=== PATIENT | female | born 1960 | race African-American/Black ===

== ENCOUNTER 2021-01-09 11:10 | Inpatient (IN) | payer OTHER ==
[~2021-01-09] VITALS: Ht 175.3 cm; Wt 117.2 kg
--- NOTE | ~2021-01-09 | EMS ---
[address] [address] EMS Patient Care Report Name: CHRISTIANO MAJANO Room #: 364-P ADM IN M.R.#: [id number] Admission: 01/09/21 Attend Phys: Hernesto Lopez MD Discharge: Date of : 58 Report #: [id number] THIS REPORT FOR: //name// Report Transmitted: 01/11/2021 11:17 EMS Care Summary [place], [place]/[facility] Incident [id number] @ 01/09/2021 10:26 Incident Location [address] [place] [address] Patient CHRISTIANO MAJANO Female, 60 Years 1960 Patient Address [address] [place] [address] Patient History Cancer, Unspecified,Hypertension (HTN),Pacemaker/AICD,Hyperlipidemia,Cardiac Condition - Other,Pneumonia,Novel Coronavirus (COVID-19), Patient Allergies No known allergies, Patient Medications Vitamin D, Omeprazole, Losartan, Aspirin, Chief Complaint COVID-19 Disposition Transported No Lights/[place] Dispatch Reason Breathing Problem Transported To [facility] Narrative DISPATCHED EMERGENCY ON A BREATHING PROBLEM. PUMPER 36 ON SCENE UPON ARRIVAL. [address] [address] EMS Patient Care Report Name: CHRISTIANO MAJANO Room #: 364-P ADM IN MJorge.#: [id number] Admission: 01/09/21 Attend Phys: Hernesto Lopez MD Discharge: Date of : 58 Report #: [id number] 60 Y/O FEMALE LAYING SUPINE IN BED APPEARING IN NO IMMEDIATE DISTRESS. GCS 15 AND A/OX4. CONSENTS FOR TX AND REQUESTS TRANSPORTATION TO [facility]. PT STATES SHE TESTED POSITIVE FOR COVID-19 ONE WEEK AGO. STATES SHE WAS SEEN AT [facility] AND RELEASED BACK HOME. STATES SHE IS WEAK AND HAVING DIFFICULTY BREATHING. RESPIRATIONS ARE LABORED BUT NOT INCREASED. PT SPEAKING IN FULL SENTENCES. ALSO STATES SHE HAS HAD EPISODES OF NAUSEA AND VOMITING BUT IS NOT CURRENTLY NAUSEOUS. MOVED WITHOUT INCIDENT TO AMBULANCE VIA STAIRCHAIR AND STRETCHER. PLACED ON MONITOR. V/S'S OBTAINED. OXYGEN SATURATION IS DECREASED. OXYGEN ADMINISTERED VIA N/C. V/S'S OBTAINED. OXYGEN SATURATION IMPROVED. TRANSPORTED TO [facility]. REASSESSED ENROUTE. REMAINS GCS 15 AND A/OX4. V/S'S CONTINOUSLY MONITORED THROUGHOUT. OXYGEN SATURATION REMAINS IMPROVED. BREATHING REMAINS LABORED. REPORT CALLED TO HOSPITAL AND ADVISED OF PT BEING POSITIVE FOR COVID-19. UPON ARRIVAL AT THE HOSPITAL, IV ESTABLISHED. MOVED WITHOUT INCIDENT TO ER HOSPITAL BED 1. PT CARE TRANSFERRED TO ED RN. NURSE SIGNS FOR PT. Initial Vitals @10:42P: 86,SpO2: 83, @10:57P: 82,R: 18,BP: 125/70,Pain: 0/10,GCS: 15,CO: 8,SpO2: 92,Revised Trauma: 12, @10:43P: 84,R: 20,BP: 131/86,Pain: 0/10,GCS: 15,Temp: 98.9F,CO: 10,SpO2: 83,Revised Trauma: 12, @10:49P: 77,R: 20,BP: 121/83,Pain: 0/10,GCS: 15,CO: 8,SpO2: 92,Revised Trauma: 12,OH Suspected: false @10:36P: 80,R: 18,Pain: 0/10,GCS: 15, Assessments @10:35MENTAL:Time Oriented,Place Oriented,Person Oriented,Event Oriented,SKIN:HEENT:Head/Face: No Abnormalities,Neck/Airway: No Abnormalities,LUNG SOUNDS:General: Nausea,General: Vomiting,ABDOMEN:General: Nausea,General: Vomiting,PELVIS//GI:EXTREMITIES:Capillary Refill: Left Upper: < 2 Sec,Capillary Refill: Left Lower: < 2 Sec,Capillary Refill: Right Lower: < 2 Sec,Capillary Refill: Right Upper: < 2 Sec,Left Arm: No Abnormalities,Right Arm: No Abnormalities,Left Leg: No Abnormalities,Right Leg: No Abnormalities,PULSE:Radial: 2+ Normal,NEURO:No Abnormalities,@10:57MENTAL:No Abnormalities,SKIN:No Abnormalities,HEENT:Head/Face: No Abnormalities,Eyes: No Abnormalities,Neck/Airway: No Abnormalities,LUNG SOUNDS:ABDOMEN:PELVIS//GI:EXTREMITIES:Left Arm: No Abnormalities,Right Arm: No Abnormalities,Left Leg: No Abnormalities,Right Leg: No Abnormalities,PULSE:NEURO: Impression COVID-19 - Confirmed by testing Procedures @10:35ALS AssessmentResponse: UnchangedSucceeded@10:423-Lead ECGResponse: [facility] [address] [place] [address] EMS Patient Care Report Name: MELECIOCHRISTIANO Room #: 364-P [facility] IN M.R.#: [id number] Admission: 01/09/21 Attend Phys: Hernesto Lopez MD Discharge: Date of : 58 Report #: [id number] UnchangedSucceeded@10:39StairchairResponse: Unchanged@10:41StretcherResponse: Unchanged@10:44Oxygen FlowRate: 6 Device: Nasal Cannula (NC) Response: ImprovedSucceeded@11:05Saline Lock 10cc (18 ga) Site: Antecubital-RightResponse: UnchangedSucceeded Timeline 10:23,Call Received 10:23,Dispatch Notified 10:26,Dispatched 10:26,En Route 10:30,On Scene 10:33,At Patient 10:35,ALS Assessment,Response: UnchangedSucceeded, 10:36,BP: / M,PULSE: 80,RR: 18 R,SPO2: Ox,ETCO2: ,BG: ,PAIN: 0,GCS: 15, 10:39,Stairchair,Response: Unchanged 10:41,Stretcher,Response: Unchanged 10:42,3-Lead ECG,Response: UnchangedSucceeded, 10:42,BP: / M,PULSE: 86,RR: R,SPO2: 83 Ox,ETCO2: ,BG: ,PAIN: ,GCS: , 10:43,BP: 131/86 M,PULSE: 84,RR: 20 R,SPO2: 83 Ox,ETCO2: ,BG: ,PAIN: 0,GCS: 15, 10:44,Oxygen FlowRate: 6 Device: Nasal Cannula (NC) Response: ImprovedSucceeded, 10:49,BP: 121/83 M,PULSE: 77,RR: 20 R,SPO2: 92 Ox,ETCO2: ,BG: ,PAIN: 0,GCS: 15, 10:54,Depart Scene 10:57,BP: 125/70 M,PULSE: 82,RR: 18 R,SPO2: 92 Ox,ETCO2: ,BG: ,PAIN: 0,GCS: 15, 11:03,At Destination 11:05,Saline Lock 10cc 18 ga Site: Antecubital-Right,Response: UnchangedSucceeded, 11:26,Call Closed Disclaimer v1.1 Copyright 2020 [employer] This EMS Care Summary contains data elements from the applicable legal record (which may be displayed differently). It is designed to provide pertinent information for the following purposes: continuity of care, clinical quality, and state data reporting. The complete legal record is available to ED staff and administrators of the receiving hospital in [employer]'s Patient Tracker. All data is provided "as is."
--- NOTE | ~2021-01-09 | EMS ---
[place] [address] EMS Patient Care Report Name: CHRISTIANO MAJANO Room #: 170-1 ADM IN M.R.#: [id number] Admission: 01/09/21 Attend Phys: Hernesto Lopez MD Discharge: Date of : 58 Report #: [id number] THIS REPORT FOR: //name// Report Transmitted: 01/09/2021 13:12 EMS Care Summary [place], [place]/[facility] Incident [id number] @ 01/09/2021 10:26 Incident Location [address] [place] [address] Patient CHRISTIANO MAJANO Female, 60 Years 1960 Patient Address [address] [place] [address] Patient History Cancer, Unspecified,Hypertension (HTN),Pacemaker/AICD,Hyperlipidemia,Cardiac Condition - Other,Pneumonia,Novel Coronavirus (COVID-19), Patient Allergies No known allergies, Patient Medications Vitamin D, Omeprazole, Losartan, Aspirin, Chief Complaint COVID-19 Disposition Transported No Lights/[place] Dispatch Reason Breathing Problem Transported To [facility] Narrative DISPATCHED EMERGENCY ON A BREATHING PROBLEM. PUMPER 36 ON SCENE UPON ARRIVAL. [address] [address] EMS Patient Care Report Name: CHRISTIANO MAJANO Room #: 170-1 ADM IN Jamie.#: [id number] Admission: 01/09/21 Attend Phys: Hernesto Lopez MD Discharge: Date of : 58 Report #: [id number] 60 Y/O FEMALE LAYING SUPINE IN BED APPEARING IN NO IMMEDIATE DISTRESS. GCS 15 AND A/OX4. CONSENTS FOR TX AND REQUESTS TRANSPORTATION TO [facility]. PT STATES SHE TESTED POSITIVE FOR COVID-19 ONE WEEK AGO. STATES SHE WAS SEEN AT [facility] AND RELEASED BACK HOME. STATES SHE IS WEAK AND HAVING DIFFICULTY BREATHING. RESPIRATIONS ARE LABORED BUT NOT INCREASED. PT SPEAKING IN FULL SENTENCES. ALSO STATES SHE HAS HAD EPISODES OF NAUSEA AND VOMITING BUT IS NOT CURRENTLY NAUSEOUS. MOVED WITHOUT INCIDENT TO AMBULANCE VIA STAIRCHAIR AND STRETCHER. PLACED ON MONITOR. V/S'S OBTAINED. OXYGEN SATURATION IS DECREASED. OXYGEN ADMINISTERED VIA N/C. V/S'S OBTAINED. OXYGEN SATURATION IMPROVED. TRANSPORTED TO [facility]. REASSESSED ENROUTE. REMAINS GCS 15 AND A/OX4. V/S'S CONTINOUSLY MONITORED THROUGHOUT. OXYGEN SATURATION REMAINS IMPROVED. BREATHING REMAINS LABORED. REPORT CALLED TO HOSPITAL AND ADVISED OF PT BEING POSITIVE FOR COVID-19. UPON ARRIVAL AT THE HOSPITAL, IV ESTABLISHED. MOVED WITHOUT INCIDENT TO ER HOSPITAL BED 1. PT CARE TRANSFERRED TO ED RN. NURSE SIGNS FOR PT. Initial Vitals @10:42P: 86,SpO2: 83, @10:57P: 82,R: 18,BP: 125/70,Pain: 0/10,GCS: 15,CO: 8,SpO2: 92,Revised Trauma: 12, @10:43P: 84,R: 20,BP: 131/86,Pain: 0/10,GCS: 15,Temp: 98.9F,CO: 10,SpO2: 83,Revised Trauma: 12, @10:49P: 77,R: 20,BP: 121/83,Pain: 0/10,GCS: 15,CO: 8,SpO2: 92,Revised Trauma: 12,IA Suspected: false @10:36P: 80,R: 18,Pain: 0/10,GCS: 15, Assessments @10:35MENTAL:Time Oriented,Place Oriented,Person Oriented,Event Oriented,SKIN:HEENT:Head/Face: No Abnormalities,Neck/Airway: No Abnormalities,LUNG SOUNDS:General: Nausea,General: Vomiting,ABDOMEN:General: Nausea,General: Vomiting,PELVIS//GI:EXTREMITIES:Capillary Refill: Left Upper: < 2 Sec,Capillary Refill: Left Lower: < 2 Sec,Capillary Refill: Right Lower: < 2 Sec,Capillary Refill: Right Upper: < 2 Sec,Left Arm: No Abnormalities,Right Arm: No Abnormalities,Left Leg: No Abnormalities,Right Leg: No Abnormalities,PULSE:Radial: 2+ Normal,NEURO:No Abnormalities,@10:57MENTAL:No Abnormalities,SKIN:No Abnormalities,HEENT:Head/Face: No Abnormalities,Eyes: No Abnormalities,Neck/Airway: No Abnormalities,LUNG SOUNDS:ABDOMEN:PELVIS//GI:EXTREMITIES:Left Arm: No Abnormalities,Right Arm: No Abnormalities,Left Leg: No Abnormalities,Right Leg: No Abnormalities,PULSE:NEURO: Impression COVID-19 - Confirmed by testing Procedures @10:35ALS AssessmentResponse: UnchangedSucceeded@10:423-Lead ECGResponse: [facility] [address] [place] [address] EMS Patient Care Report Name: CHRISTIANO MAJANO Room #: 170-1 ADM IN M.R.#: [id number] Admission: 01/09/21 Attend Phys: Hernesto Lopez MD Discharge: Date of : 58 Report #: [id number] UnchangedSucceeded@10:39StairchairResponse: Unchanged@10:41StretcherResponse: Unchanged@10:44Oxygen FlowRate: 6 Device: Nasal Cannula (NC) Response: ImprovedSucceeded@11:05Saline Lock 10cc (18 ga) Site: Antecubital-RightResponse: UnchangedSucceeded Timeline 10:23,Call Received 10:23,Dispatch Notified 10:26,Dispatched 10:26,En Route 10:30,On Scene 10:33,At Patient 10:35,ALS Assessment,Response: UnchangedSucceeded, 10:36,BP: / M,PULSE: 80,RR: 18 R,SPO2: Ox,ETCO2: ,BG: ,PAIN: 0,GCS: 15, 10:39,Stairchair,Response: Unchanged 10:41,Stretcher,Response: Unchanged 10:42,3-Lead ECG,Response: UnchangedSucceeded, 10:42,BP: / M,PULSE: 86,RR: R,SPO2: 83 Ox,ETCO2: ,BG: ,PAIN: ,GCS: , 10:43,BP: 131/86 M,PULSE: 84,RR: 20 R,SPO2: 83 Ox,ETCO2: ,BG: ,PAIN: 0,GCS: 15, 10:44,Oxygen FlowRate: 6 Device: Nasal Cannula (NC) Response: ImprovedSucceeded, 10:49,BP: 121/83 M,PULSE: 77,RR: 20 R,SPO2: 92 Ox,ETCO2: ,BG: ,PAIN: 0,GCS: 15, 10:54,Depart Scene 10:57,BP: 125/70 M,PULSE: 82,RR: 18 R,SPO2: 92 Ox,ETCO2: ,BG: ,PAIN: 0,GCS: 15, 11:03,At Destination 11:05,Saline Lock 10cc 18 ga Site: Antecubital-Right,Response: UnchangedSucceeded, 11:26,Call Closed Disclaimer v1.1 Copyright 2020 [employer] This EMS Care Summary contains data elements from the applicable legal record (which may be displayed differently). It is designed to provide pertinent information for the following purposes: continuity of care, clinical quality, and state data reporting. The complete legal record is available to ED staff and administrators of the receiving hospital in [employer]'s Patient Tracker. All data is provided "as is."
[2021-01-09 11:12] VITALS: BP 137/78
[2021-01-09 11:36] LABS: BASOPHILS 0.8 % (0.0-2.0); HEMATOCRIT 40.7 % (37.0-47.0); HEMOGLOBIN 13.9 gm/dL (12.0-15.0); LYMPHOCYTES 4.9 % (24.0-44.0); MCH 33.7 pg (26.0-34.0); MONOCYTES 4.7 % (1.0-8.0); PLATELET COUNT 148 thou/uL (150-400); POLYS 89.6 % (36.0-66.0); RBC 4.12 mil/uL (4.20-5.00); RDW 13.5 % (10.5-14.5); WBC 3.4 thou/uL (4.0-11.0)
[2021-01-09 12:04] LABS: CREATININE 0.7 mg/dL (0.6-1.0); POTASSIUM 3.4 mmol/L (3.5-5.1); TOTAL BILIRUBIN 0.3 mg/dL (0.2-1.0); TOTAL PROTEIN 4.6 g/dL (6.4-8.2)
[2021-01-09 12:07] LABS: CALCIUM 5.8 mg/dL (8.5-10.1)
[2021-01-09 13:03] LABS: URINE BILIRUBIN NEGATIVE (Negative); URINE BLOOD NEGATIVE (Negative); URINE CLARITY CLEAR; URINE COLOR YELLOW; URINE GLUCOSE-RANDOM* NEGATIVE (Negative); URINE KETONES 1+ (Negative); URINE LEUKOCYTES-REFLEX NEGATIVE (Negative); URINE NITRITE-REFLEX NEGATIVE (Negative); URINE PROTEIN (DIPSTICK) 1+ (Negative); URINE SPECIFIC GRAVITY 1.025 (1.005-1.035)
[2021-01-09 13:17] LABS: SQUAMOUS 0-3 Few /LPF (0-3)
[2021-01-09 13:18] LABS: BACTERIA-REFLEX 1-9 Few /HPF (None Seen); URINE RBC 1-2 Rare /HPF (NONE SEEN); URINE WBC-REFLEX 0-5 Rare /HPF (0-5)
[2021-01-09 13:20] LABS: BE(vivo) -3.9 mmol/L (-2 to +3); HCO3 18.9 mmol/L (22.0-26.0); PCO2 28.4 mmHg (35.0-45.0); PO2 57.2 mmHg (80.0-100.0); pH 7.441 (7.360-7.450); sO2 91.3 % (92.0-98.0)
[2021-01-09] MEDS ORDERED: LEXAPRO 10 MG T10 M2 PO (15:50)
[2021-01-09] MEDS ORDERED: REPATHA SU140 MG/1 M PO (15:50)
[2021-01-09] MEDS ORDERED: LOSARTAN POTASS50 MG PO (15:53)
[2021-01-09 17:11] LABS: CALCIUM 7.7 mg/dL (8.5-10.1); CREATININE 0.9 mg/dL (0.6-1.0); PHOSPHORUS 3.2 mg/dL (2.6-4.7)
[2021-01-09 23:21] VITALS: BP 114/70
[2021-01-10 04:33] VITALS: BP 124/78
[2021-01-10 05:11] LABS: ALBUMIN 2.3 g/dL (3.4-5.0); DIRECT BILIRUBIN 0.1 mg/dL (<0.1-0.2); PHOSPHORUS 3.7 mg/dL (2.5-4.9); POTASSIUM 4.3 mmol/L (3.5-5.1); TOTAL BILIRUBIN 0.3 mg/dL (0.2-1.0); TOTAL PROTEIN 6.2 g/dL (6.4-8.2)
[2021-01-10 05:13] LABS: CALCIUM 7.8 mg/dL (8.5-10.1)
[2021-01-10 06:22] LABS: HEMATOCRIT 38.9 % (37.0-47.0); HEMOGLOBIN 13.2 gm/dL (12.0-15.0); MCH 33.7 pg (26.0-34.0); MCHC 34.1 g/dL (28.0-37.0); MCV 98.8 fL (80.0-100.0); PLATELET COUNT 138 thou/uL (150-400); RBC 3.93 mil/uL (4.20-5.00); RDW 13.6 % (10.5-14.5)
[2021-01-10 06:25] LABS: WBC 1.8 thou/uL (4.0-11.0)
[2021-01-10 06:40] LABS: MAGNESIUM 2.5 mg/dL (1.8-2.4)
--- NOTE | 2021-01-10 07:14 | NUR ---
TOOK OVER CARE FROM GALE REINA AT THIS TIME
--- NOTE | 2021-01-10 07:47 | EKG ---
[address] [address] ELECTROCARDIOGRAM REPORT Name: CHRISTIANO MAJANO Room #: 170-14 ADM IN M.R.#: [id number] Admission: 01/09/21 Attend Phys: Hernesto Lopez MD Discharge: Date of : 58 Report #: [id number] [facility] ED Test Date: 2021-01-09 Test Time: 11:13:27 Pat Name: CHRISTIANO MAJANO Department: Room: 170 Gender: F Hand Sample Maker: LARISA : 1960 Requested By: Milad Rodriguez Order Number: [id number] : Alonzo Contreras Measurements Intervals Gunter Rate: 76 P: 52 NE: 153 QRS: 21 QRSD: 101 T: 73 QT: 380 QTc: 428 Interpretive Statements Sinus rhythm Probable left atrial enlargement Left ventricular hypertrophy No previous ECG available for comparison Electronically Signed On 01-10-2021 7:46:59 CDT by Alonzo Contrreas [email or web address] <ELECTRONICALLY SIGNED> By: Alonzo Contreras MD, [facility] 01/10/21 0746 [id number] Alonzo Contreras MD, FACC /EPI
[2021-01-10 11:48] LABS: ABSOLUTE NEUTROPHILS 1.6 thou/uL (1.4-8.2); PLATELET ESTIMATE NORMAL
[2021-01-10 13:45] LABS: BE(vivo) -2.8 mmol/L (-2 to +3); HCO3 20.6 mmol/L (22.0-26.0); PCO2 32.3 mmHg (35.0-45.0); pH 7.423 (7.360-7.450); sO2 88.7 % (92.0-98.0)
[2021-01-10 13:46] LABS: PO2 53.2 mmHg (80.0-100.0)
--- NOTE | 2021-01-10 14:00 | NUR ---
RT AT BEDSIDE ADJUSTING PT OPTIFLOW SETTINGS AT THIS TIME
[2021-01-10 14:26] VITALS: BP 130/70
[2021-01-10 14:35] VITALS: BP 130/70
--- NOTE | 2021-01-10 14:37 | NUR ---
REPORT GIVEN TO GALE CARRIZALES AT THIS TIME. PT READY FOR TRANSPORT
[2021-01-10 15:15] VITALS: BP 137/87
[2021-01-10 20:40] VITALS: BP 158/104
[2021-01-11 00:47] VITALS: BP 142/82
--- NOTE | 2021-01-11 05:31 | NUR ---
Patient making slow progress towards outcome goals. Requires 50L/100% oxygen per optiflow to keep sats at 92-93%, desaturates with any activity. Gait steady. External female catheter offered and patient declined. Vital signs and rhythm stable.
[2021-01-11 05:37] VITALS: BP 140/84
[2021-01-11 07:05] LABS: HEMATOCRIT 38.9 % (37.0-47.0); HEMOGLOBIN 13.1 gm/dL (12.0-15.0); MCH 33.3 pg (26.0-34.0); MCHC 33.7 g/dL (28.0-37.0); PLATELET COUNT 185 thou/uL (150-400); RBC 3.93 mil/uL (4.20-5.00); RDW 13.3 % (10.5-14.5); WBC 2.3 thou/uL (4.0-11.0)
[2021-01-11 07:40] LABS: ALBUMIN 2.4 g/dL (3.4-5.0); CALCIUM 8.3 mg/dL (8.5-10.1); CREATININE 0.9 mg/dL (0.6-1.0); DIRECT BILIRUBIN 0.1 mg/dL (<0.1-0.2); PHOSPHORUS 3.6 mg/dL (2.5-4.9); POTASSIUM 4.4 mmol/L (3.5-5.1); TOTAL BILIRUBIN 0.3 mg/dL (0.2-1.0); TOTAL PROTEIN 6.1 g/dL (6.4-8.2)
[2021-01-11 07:53] VITALS: BP 126/88
[2021-01-11 09:34] LABS: PLATELET ESTIMATE NORMAL
[2021-01-11 12:07] LABS: HIV ANTIBODY Non Reactive (Non Reactive)
[2021-01-11 12:12] VITALS: BP 128/88
--- NOTE | 2021-01-11 15:06 | NUR ---
INITIAL ASSESSMENT: LETICIA reviewed chart and spoke with nursing and attending physician. Pt was admitted from home due to COVID. Pt placed in Enhanced Isolation. Pt has received the [employer] COVID vaccine. Pt is afebrile and requiring optiflow. Pt is on IV abx and IV steroids. Remdesivir, Ivermectin and Actemra all started. Pt with hx of breast cancer, HTN, CAD. LETICIA placed call to pt's room. No answer. LETICIA left voice message for pt's sister, Myron. Per chart, pt lives at home alone. Will need therapy evals ordered when pt is able to participate. LETICIA is following to assist as needed with discharge planning.
[2021-01-11 16:13] VITALS: BP 136/93
--- NOTE | 2021-01-11 16:31 | NUR ---
A #4F MIDLINE WAS PLACED PER HOSPITAL POLICY. THE LINE WAS TRIMMED TO 14CM AND ADVANCED WITHOUT DIFFICULTY. VEIN TO CATHETER RATIO WAS 20% AND WNL. LINE WAS SECURED AND RELEASED FOR USE
[2021-01-11 20:30] VITALS: BP 123/85
[2021-01-12 05:17] VITALS: BP 129/85
--- NOTE | 2021-01-12 06:28 | NUR ---
Patient progress slow continues to require oxygen per optiflow 40L/100%, sats 95-99%.Desaturates with any activity. Gait steady but slow. Up x 1 to BSC. Denies pain.
[2021-01-12 07:25] VITALS: BP 119/78
[2021-01-12 08:35] LABS: HEMATOCRIT 38.2 % (37.0-47.0); HEMOGLOBIN 12.8 gm/dL (12.0-15.0); MCH 33.3 pg (26.0-34.0); MCHC 33.7 g/dL (28.0-37.0); RBC 3.86 mil/uL (4.20-5.00); RDW 13.5 % (10.5-14.5); WBC 2.3 thou/uL (4.0-11.0)
[2021-01-12 08:49] LABS: ALBUMIN 2.4 g/dL (3.4-5.0); ANION GAP 10 mmol/L (7-16); BUN 17 mg/dL (7-18); CALCIUM 8.2 mg/dL (8.5-10.1); CHLORIDE 101 mmol/L (98-107); CO2 24 mmol/L (21-32); CREATININE 0.9 mg/dL (0.6-1.0); DIRECT BILIRUBIN < 0.1 mg/dL (<0.1-0.2); GLUCOSE 122 mg/dL (74-106); PHOSPHORUS 3.4 mg/dL (2.6-4.7); POTASSIUM 4.5 mmol/L (3.5-5.1); SGOT 25 U/L (15-37); SGPT 39 U/L (14-59); SODIUM 135 mmol/L (136-145); TOTAL BILIRUBIN 0.3 mg/dL (0.2-1.0); TOTAL PROTEIN 5.8 g/dL (6.4-8.2)
[2021-01-12 08:58] LABS: ALBUMIN 2.4 g/dL (3.4-5.0); CALCIUM 7.8 mg/dL (8.5-10.1); CREATININE 0.8 mg/dL (0.6-1.0); MAGNESIUM 2.2 mg/dL (1.8-2.4); POTASSIUM 4.7 mmol/L (3.5-5.1); TOTAL BILIRUBIN 0.3 mg/dL (0.2-1.0); TOTAL PROTEIN 5.3 g/dL (6.4-8.2)
[2021-01-12 11:22] VITALS: BP 130/88
--- NOTE | 2021-01-12 14:57 | NUR ---
LETICIA reviewed chart and spoke with nursing and attending physician. Pt remains in Enhanced Isolation due to COVID. Pt is afebrile and requiring optiflow. Pt is on IV abx and IV steroids. Remdesivir and Ivermectin to be completed. No weekend discharge planned. LETICIA placed call to pt's room. No answer. Awaiting call back from pt's sister, Myron. Therapy evals to be ordered when pt is able to participate. LETICIA is following to assist as needed with discharge planning.
[2021-01-12 15:20] VITALS: BP 138/91
[2021-01-12 20:35] VITALS: BP 145/94
[2021-01-13 00:20] VITALS: BP 125/85
--- NOTE | 2021-01-13 01:37 | NUR ---
DR BOLES ROUNDED ON PT AT BEGINNING OF SHIFT. HE REQUESTED PT BE PLACED ON BIPAP DURING THE NIGHT. RT ATTEMPTED TO PLACE PT ON BIPAP, BUT PT BECAME VERY ANXIOUS AND STATED SHE FELT CLAUSTROPHOBIC ABOUT WEARING THE BIPAP MASK. SHE BECAME SO ANXIOUS SHE FELT NAUSEATED. ZOFRAN GIVEN. NOTIFIED DR BOLES OF PT'S ANXIETY ABOUT WEARING BIPAP. SPO2 89-94% ON OPTIFLOW 50L, 100% FIO2. DR BOLES DID NOT WANT TO GIVEN PT ANY MEDICATION FOR ANXIETY. HE STATED HE WAS ALRIGHT WITH HER REMAINING OFF BIPAP FOR NOW. NO SIGNIFICANT RESP DISTRESS NOTED. SHE DID GET UP TO BSC WITH ASSISTANCE. PT WAS SOA WITH THE ACTIVITY BUT RECOVERED WITH REST. NOT PROGRESSING WELL TOWARD POC GOALS. WILL CONTINUE TO MONITOR CLOSELY.
[2021-01-13 05:00] VITALS: BP 130/88
[2021-01-13 06:37] LABS: ABSOLUTE NEUTROPHILS 2.2 thou/uL (1.4-8.2); BASOPHILS 0.3 % (0.0-2.0); HEMOGLOBIN 12.6 gm/dL (12.0-15.0); LYMPHOCYTES 4.5 % (24.0-44.0); MCH 33.5 pg (26.0-34.0); MCHC 33.9 g/dL (28.0-37.0); PLATELET COUNT 181 thou/uL (150-400); POLYS 89.2 % (36.0-66.0); RBC 3.74 mil/uL (4.20-5.00); RDW 13.7 % (10.5-14.5); WBC 2.5 thou/uL (4.0-11.0)
[2021-01-13 06:56] LABS: ALBUMIN 2.3 g/dL (3.4-5.0); ANION GAP 9 mmol/L (7-16); BUN 16 mg/dL (7-18); CHLORIDE 98 mmol/L (98-107); CO2 23 mmol/L (21-32); CREATININE 0.9 mg/dL (0.6-1.0); DIRECT BILIRUBIN < 0.1 mg/dL (<0.1-0.2); GLUCOSE 127 mg/dL (74-106); PHOSPHORUS 3.2 mg/dL (2.6-4.7); POTASSIUM 4.4 mmol/L (3.5-5.1); SGOT 24 U/L (15-37); SGPT 41 U/L (14-59); SODIUM 130 mmol/L (136-145); TOTAL BILIRUBIN 0.3 mg/dL (0.2-1.0); TOTAL PROTEIN 5.6 g/dL (6.4-8.2)
[2021-01-13 07:24] VITALS: BP 140/93
[2021-01-13 11:18] VITALS: BP 144/94
[2021-01-13 15:27] VITALS: BP 122/82
--- NOTE | 2021-01-13 18:14 | NUR ---
PT ON OPTIFLOW WITH 60L @ 100% WITH 02 SATS AT 93%. PT HAS HIGH ANXIETY LEVEL AND FEARFULL OF GOING ON BIPAP. PT UP WITH SBA TO BSC. COVID POC WITH REMDESIVIR AND IVERMECTIN GIVEN.
[2021-01-13 19:29] VITALS: BP 118/78
[2021-01-14] VITALS (11 sets, daily range): BP systolic 131–151; BP diastolic 69–97
[2021-01-14 06:33] LABS: HEMATOCRIT 37.1 % (37.0-47.0); HEMOGLOBIN 12.4 gm/dL (12.0-15.0); LYMPHOCYTES 3.2 % (24.0-44.0); MCH 32.8 pg (26.0-34.0); MCHC 33.4 g/dL (28.0-37.0); MCV 98.4 fL (80.0-100.0); MONOCYTES 4.6 % (1.0-8.0); PLATELET COUNT 185 thou/uL (150-400); POLYS 92.2 % (36.0-66.0); RBC 3.77 mil/uL (4.20-5.00); RDW 13.4 % (10.5-14.5); WBC 3.3 thou/uL (4.0-11.0)
[2021-01-14 06:43] LABS: ALBUMIN 2.2 g/dL (3.4-5.0); CALCIUM 7.4 mg/dL (8.5-10.1); CREATININE 0.9 mg/dL (0.6-1.0); POTASSIUM 4.5 mmol/L (3.5-5.1); TOTAL BILIRUBIN 0.3 mg/dL (0.2-1.0); TOTAL PROTEIN 5.6 g/dL (6.4-8.2)
--- NOTE | 2021-01-14 07:02 | NUR ---
Pt. slept fair during the night. Up to commode x2. Optiflow 60L/100% with O2 sat in the mid to upper 90's at rest. Desat with activities. Offered external cath but would prefer to get up to commode. Cont. on enhanced precaution , afebrile.
--- NOTE | 2021-01-14 12:16 | NUR ---
CONSULT CALLED IN TO UROLOGY. OTOLARYNGOLOGY TEACHER RETURNED CALL AT 1215 AND THEY WILL ROUND ON PT. ALSO DR. BOLES SAID PT IS ON THE CUSP OF HAVING TO MOVE TO ICU. WILL NEED TO MONITOR 02 SATURATIONS AND KEEP ABOVE 90. NOTIFIED PEDIATRIC PHYSIATRIST ABOUT POSSIBLE NEED FOR ICU BED.
--- NOTE | 2021-01-14 21:00 | NUR ---
60 Y/O PT OF DR BRASHER ADMITTED TO ICU FROM [facility] WITH INCREASING O2 NEEDS. CURRRNTLY ON 100 % OPTIFLOW 60 LITERS PT AWAKE AND ALERT COOPERATIVE. O2 SAT 95 %. CEVALLOS NEURO INTACT. PT IS IN ENHANSED PRECAUTIONS FOR COVID 19. WILL CONT TO ANJU CLOSELY.
[2021-01-15] VITALS (22 sets, daily range): BP systolic 115–152; BP diastolic 74–94
[2021-01-15 05:36] LABS: ABSOLUTE NEUTROPHILS 4.4 thou/uL (1.4-8.2); BASOPHILS 0.2 % (0.0-2.0); HEMATOCRIT 37.4 % (37.0-47.0); HEMOGLOBIN 12.9 gm/dL (12.0-15.0); LYMPHOCYTES 2.6 % (24.0-44.0); MCH 33.7 pg (26.0-34.0); MCHC 34.5 g/dL (28.0-37.0); MCV 97.7 fL (80.0-100.0); MONOCYTES 4.5 % (1.0-8.0); PLATELET COUNT 201 thou/uL (150-400); POLYS 92.7 % (36.0-66.0); RBC 3.82 mil/uL (4.20-5.00); WBC 4.8 thou/uL (4.0-11.0)
[2021-01-15 05:46] LABS: D-DIMER 2.33 ug/mLFEU (0.19-0.50); INR 1.14; PROTIME 12.4 Seconds (10.5-12.1)
[2021-01-15 05:50] LABS: ALBUMIN 2.2 g/dL (3.4-5.0); CALCIUM 7.6 mg/dL (8.5-10.1); CREATININE 0.7 mg/dL (0.6-1.0); TOTAL BILIRUBIN 0.4 mg/dL (0.2-1.0); TOTAL PROTEIN 5.7 g/dL (6.4-8.2)
[2021-01-15 05:53] LABS: DIRECT BILIRUBIN < 0.1 mg/dL (<0.1-0.2); POTASSIUM 4.8 mmol/L (3.5-5.1)
--- NOTE | 2021-01-15 06:00 | NUR ---
PT HAS SLEPT MOST OF NIGHT. FIO2 NOW TITRATED T0 80 % OPTIFLOW LUNGS REMAIN DIMINISHED A PACED VSS PROGRESSING TOWARD GOALS.
--- NOTE | 2021-01-15 06:00 | NUR ---
PT BATHED. SHE TURNS WELL BY HERSELF. DENIES PAIN NOR DISCOMFORT. A VERY DELIGHTFUL LITTLE LADY. PROGRESSING TOWARD GOALS
--- NOTE | 2021-01-15 16:05 | NUR ---
Chart review, discussed during am unite rounds and los. COVID, enhanced isolation. Opti flow. nutritional support. Will cont. following as needed for dc needs.
--- NOTE | 2021-01-15 19:44 | NUR ---
PATIENT PROGRESSING TOWARDS THE PLAN OF CARE EVIDENCED BY NO NEW INCREASED NEED FOR 02. POSSIBLE TRANSFER OUT OF ICU TOMORROW.
[2021-01-16] VITALS (18 sets, daily range): BP systolic 92–128; BP diastolic 61–83
[2021-01-16 05:18] LABS: ABSOLUTE NEUTROPHILS 5.4 thou/uL (1.4-8.2); BASOPHILS 0.1 % (0.0-2.0); HEMATOCRIT 37.3 % (37.0-47.0); HEMOGLOBIN 12.5 gm/dL (12.0-15.0); LYMPHOCYTES 3.2 % (24.0-44.0); MCH 32.8 pg (26.0-34.0); MCHC 33.5 g/dL (28.0-37.0); MCV 97.8 fL (80.0-100.0); MONOCYTES 7.5 % (1.0-8.0); PLATELET COUNT 232 thou/uL (150-400); POLYS 89.2 % (36.0-66.0); RBC 3.81 mil/uL (4.20-5.00); RDW 13.3 % (10.5-14.5); WBC 6.1 thou/uL (4.0-11.0)
[2021-01-16 05:28] LABS: ALBUMIN 2.1 g/dL (3.4-5.0); CALCIUM 7.3 mg/dL (8.5-10.1); CREATININE 0.7 mg/dL (0.6-1.0); DIRECT BILIRUBIN 0.1 mg/dL (<0.1-0.2); PHOSPHORUS 2.7 mg/dL (2.5-4.9); POTASSIUM 4.5 mmol/L (3.5-5.1); TOTAL BILIRUBIN 0.3 mg/dL (0.2-1.0); TOTAL PROTEIN 5.3 g/dL (6.4-8.2)
--- NOTE | 2021-01-16 05:44 | NUR ---
Patient is progressing towards goal. Able to wean down oxygen on HiFlow to 60% 60L. Patient had no anxiety throughout the night and was able to get adequate skin.
--- NOTE | 2021-01-16 10:46 | NUR ---
ASSUMED CARE OF PT AT 0700 SPOKE TO PT'S SISTER AT 1047 AND UPDATED HER PER POC
--- NOTE | 2021-01-16 16:23 | NUR ---
PT HAS TRANSFERRED TO . PT IS A&OX4, NO PAIN. STATES SHE IS VERY TIRED, ON OPTIFLOW 6OL/60%. PT BELONGINGS INCLUDE CELL PHONE, BACK TENDER CLOTH PRINTING, GLASSESS, AND BAG. NO OTHER CONCERNS OR ISSUES AT THIS TIME.
[2021-01-17 03:41] VITALS: BP 132/84
[2021-01-17 07:21] LABS: ABSOLUTE NEUTROPHILS 4.4 thou/uL (1.4-8.2); BASOPHILS 0.1 % (0.0-2.0); EOSINOPHILS 0.1 % (0.0-3.0); HEMOGLOBIN 12.5 gm/dL (12.0-15.0); LYMPHOCYTES 4.3 % (24.0-44.0); MCH 33.2 pg (26.0-34.0); MCHC 33.7 g/dL (28.0-37.0); MCV 98.6 fL (80.0-100.0); MONOCYTES 10.5 % (1.0-8.0); PLATELET COUNT 211 thou/uL (150-400); RBC 3.76 mil/uL (4.20-5.00); RDW 13.2 % (10.5-14.5); WBC 5.2 thou/uL (4.0-11.0)
--- NOTE | 2021-01-17 07:24 | NUR ---
PROGRESS PT A/O X4, LUNGS COARSE AND DIMINISHED ON OPTIFLO AT 60% SATS MAINTAINING AT 98 TO 99% ALL NIGHT. VSS, ACCUCHECKS AND SSI CONTINUE. VOIDING QS. NO BM SINCE 01/09 SO SCHEDULED COLACE AND PRN MIRALAX GIVEN. PT DENIES PAIN. MIDINE TO ARASELI INTACT FLUSHES WITHOUT DIFFICULTY AND LABS WERE ABLE TO BE DRAWN. CONTINUE POC.
[2021-01-17 07:40] LABS: ALBUMIN 2.1 g/dL (3.4-5.0); ANION GAP 6 mmol/L (7-16); BUN 17 mg/dL (7-18); CALCIUM 7.5 mg/dL (8.5-10.1); CHLORIDE 102 mmol/L (98-107); CO2 25 mmol/L (21-32); CREATININE 0.8 mg/dL (0.6-1.0); DIRECT BILIRUBIN < 0.1 mg/dL (<0.1-0.2); GLUCOSE 102 mg/dL (74-106); PHOSPHORUS 2.8 mg/dL (2.6-4.7); POTASSIUM 4.3 mmol/L (3.5-5.1); SGOT 12 U/L (15-37); SGPT 24 U/L (14-59); SODIUM 133 mmol/L (136-145); TOTAL BILIRUBIN 0.3 mg/dL (0.2-1.0); TOTAL PROTEIN 5.2 g/dL (6.4-8.2)
[2021-01-17 08:04] VITALS: BP 131/77
[2021-01-17 11:09] VITALS: BP 114/79
--- NOTE | 2021-01-17 13:16 | NUR ---
LETICIA reviewed chart and spoke with nursing and attending physician. Pt was transferred to from ICU. Pt remains in Enhanced Isolation due to COVID. Pt is afebrile and requiring optiflow. Pt is on IV abx and IV steroids. Pt is also on Remdesivir. PT/OT evals ordered today. SW placed call to pt's room. No answer. Pt placed call to pt's sister, Bea. Voice mailbox is full. LETICIA asked pt's nurse to call SW from pt's room if possible to discuss discharge planning. LETICIA is following to assist as needed.
[2021-01-17 17:21] VITALS: BP 123/72
--- NOTE | 2021-01-17 18:20 | NUR ---
ASSUMED PATIENT CARE AT 0700. A/O X4. ON OPTIFLOW. SOB WITH EXERTION. STANDBY ASSISTED TO BSC. SLOWLY TOWARDS POC GOALS.
[2021-01-17 20:37] VITALS: BP 107/66
--- NOTE | 2021-01-18 03:33 | NUR ---
PROGRESS PT A/O X4, LUNGS DIMINISHED AND COARSE IN THE BASES, OPTIFLO AT 45/75% SATS STILL IN LOW 90'S. HAS A NOSE BLEED THAT IS MAKING HER ANXIOUS NOT BLEEDING PROFUSELY BUT ENOUGH TO BE BOTHERSOME ORDER FOR SALINE SPRAY OBTAINED, IT WASN'T AVAILABLE SO ORDER CHANGED TO AYR NASAL GEL AWAITING DELIVERY. VSS, UP WITH SBA, SKIN C/D/I TELEMETRY INTACT READING APACED WITH RATES IN THE 60'S. DENIES PAIN. ACCUCHECKS AND SSI CONTINUE NO COVERAGE REQUIRED FOR HS OF 126. VOIDING QS IN BSC. NO BM THIS SHIFT DID NOT WANT ANYMORE MIRALX SHE STATED SHE IS STARTING TO FEEL LIKE SHE WILL HAVE ONE SOON. CONTINUE TO MONITOR.
[2021-01-18 04:20] VITALS: BP 110/62
[2021-01-18 07:10] VITALS: BP 116/78
[2021-01-18 08:01] LABS: ABSOLUTE NEUTROPHILS 4.6 thou/uL (1.4-8.2); BASOPHILS 0.2 % (0.0-2.0); EOSINOPHILS 0.2 % (0.0-3.0); HEMATOCRIT 36.6 % (37.0-47.0); HEMOGLOBIN 12.2 gm/dL (12.0-15.0); MCH 32.9 pg (26.0-34.0); MCHC 33.4 g/dL (28.0-37.0); MCV 98.7 fL (80.0-100.0); MONOCYTES 8.3 % (1.0-8.0); PLATELET COUNT 220 thou/uL (150-400); POLYS 87.3 % (36.0-66.0); RBC 3.71 mil/uL (4.20-5.00); RDW 13.8 % (10.5-14.5); WBC 5.2 thou/uL (4.0-11.0)
[2021-01-18 08:15] LABS: ALBUMIN 2.1 g/dL (3.4-5.0); CALCIUM 7.2 mg/dL (8.5-10.1); CREATININE 0.8 mg/dL (0.6-1.0); DIRECT BILIRUBIN 0.1 mg/dL (<0.1-0.2); PHOSPHORUS 2.9 mg/dL (2.5-4.9); POTASSIUM 4.2 mmol/L (3.5-5.1); TOTAL BILIRUBIN 0.3 mg/dL (0.2-1.0); TOTAL PROTEIN 5.3 g/dL (6.4-8.2)
[2021-01-18 14:42] LABS: T-SPOT.TB Negative
[2021-01-18 15:34] VITALS: BP 104/70
[2021-01-18 20:42] VITALS: BP 120/75
--- NOTE | 2021-01-19 04:32 | NUR ---
Patient making progress towards outcome goals. Vital signs and rhythm stable. Gait steady, getting stronger, SBA only due to oxygen and IVtubing. Appetite improving. No BM but does not feel constipated. Oxygen decreased to 13L Hiflow, sqts 95-96%.
[2021-01-19 04:38] VITALS: BP 97/59
[2021-01-19 06:15] LABS: ABSOLUTE NEUTROPHILS 4.4 thou/uL (1.4-8.2); BASOPHILS 0.3 % (0.0-2.0); EOSINOPHILS 0.2 % (0.0-3.0); HEMOGLOBIN 11.5 gm/dL (12.0-15.0); LYMPHOCYTES 4.9 % (24.0-44.0); MCH 33.5 pg (26.0-34.0); MCHC 33.9 g/dL (28.0-37.0); MONOCYTES 9.9 % (1.0-8.0); PLATELET COUNT 211 thou/uL (150-400); POLYS 84.7 % (36.0-66.0); RBC 3.44 mil/uL (4.20-5.00); RDW 13.5 % (10.5-14.5); WBC 5.2 thou/uL (4.0-11.0)
[2021-01-19 07:40] LABS: CALCIUM 7.6 mg/dL (8.5-10.1); CREATININE 0.7 mg/dL (0.6-1.0); POTASSIUM 4.1 mmol/L (3.5-5.1)
[2021-01-19 07:46] VITALS: BP 112/70
--- NOTE | 2021-01-19 14:49 | NUR ---
LETICIA reviewed chart and spoke with nursing and attending physician. Pt remains in Enhanced Isolation due to COVID. Pt is afebrile and on 8L of O2. Pt is on IV steroids. Pt is progressing towards goals for discharge. 5N evaluated pt and is too high level for admission to inpt acute rehab. LETICIA spoke with pt via phone. Introduced role of SW. Pt is alert/orientated x 4. Pt reports she lives at home alone. Prior to admission, pt was independent with ADLs. No use of DME. No hx of HH or post-acute placement. Pt's PCP is Dr. Chrissy Méndez at [facility]. LETICIA discuss discharge needs: home O2 and possible HH. Pt denies needing HH and is agreeable with home O2 referral. Options provided. No preference voiced. LETICIA faxed home O2 referral to [facility]. Notified [facility] liaison, who will deliver a portable O2 tank to the hospital today, if needed for weekend discharge. Rest/exercise oximetry will need to be ordered to determine home O2 needs. Results and script for O2 will need to be faxed to [facility]. Contact info for Mary placed in pt's discharge summary. Pt states she will have transportation home and has family support to help her when she gets back home. LETICIA is following to assist as needed with discharge planning. [facility] EMERGENCY DEPARTMENT--
[2021-01-19 15:02] VITALS: BP 112/70
[2021-01-19 15:34] VITALS: BP 112/75
--- NOTE | 2021-01-19 18:29 | NUR ---
ASSUMED PATIENT CARE AT 0700. A/O X4. TITRATED O2 TO 2L/NC. PATIENT TOLERATED WELL. PROGRESSING TOWARDS POC GOALS.
[2021-01-19 19:34] VITALS: BP 119/74
[2021-01-20 04:26] VITALS: BP 106/67
[2021-01-20 05:19] LABS: D-DIMER 1.22 ug/mLFEU (0.19-0.50)
[2021-01-20 05:28] LABS: ALBUMIN 2.1 g/dL (3.4-5.0); CALCIUM 7.2 mg/dL (8.5-10.1); CREATININE 0.8 mg/dL (0.6-1.0); POTASSIUM 3.9 mmol/L (3.5-5.1); TOTAL BILIRUBIN 0.2 mg/dL (0.2-1.0); TOTAL PROTEIN 5.1 g/dL (6.4-8.2)
--- NOTE | 2021-01-20 05:32 | NUR ---
Pt. has slept well during the night. Maintaining O2 sat in the mid 90's on 2L/NC. Cont. on enhanced precaution , afebrile. Making some progress towards care plan goals.
[2021-01-20 05:35] LABS: ABSOLUTE NEUTROPHILS 3.5 thou/uL (1.4-8.2); BASOPHILS 0.3 % (0.0-2.0); EOSINOPHILS 0.5 % (0.0-3.0); HEMATOCRIT 33.6 % (37.0-47.0); HEMOGLOBIN 11.5 gm/dL (12.0-15.0); LYMPHOCYTES 9.2 % (24.0-44.0); MCH 33.6 pg (26.0-34.0); MCHC 34.3 g/dL (28.0-37.0); MONOCYTES 11.8 % (1.0-8.0); PLATELET COUNT 174 thou/uL (150-400); POLYS 78.2 % (36.0-66.0); RBC 3.43 mil/uL (4.20-5.00); RDW 13.4 % (10.5-14.5); WBC 4.4 thou/uL (4.0-11.0)
[2021-01-20 07:47] VITALS: BP 108/66
[2021-01-20 15:32] VITALS: BP 104/62
--- NOTE | 2021-01-20 17:48 | NUR ---
ASSUMED PATIENT CARE AT 0700. A/O X4. ON RA. STANDBY ASSISTED. PROGRESSING TOWARDS POC GOALS.DC TO HOME WITH HH TOMORROW.
[2021-01-20 20:27] VITALS: BP 108/64
[2021-01-21 03:40] VITALS: BP 115/66
[2021-01-21 07:16] VITALS: BP 129/76
--- NOTE | 2021-01-21 07:23 | NUR ---
PT MAKING PROGRESS TOWARDS GOALS. ON ROOM AIR THROUGHOUT THE NIGHT. NO COMPLAINTS VOICED OVERNIGHT. HOPING TO GO HOME TODAY.
[2021-01-21] MEDS ORDERED: PREDNISONE 10 M10 M1 PO (09:35)
[2021-01-21] MEDS ORDERED: ELIQUIS5 MG PO (09:35)
--- NOTE | 2021-01-21 14:06 | NUR ---
PT DISCHARGED HOME. PT TOOK CAB. TRANSPORTED OUT VIA WHEELCHAIR. PT VERBALIZED UNDERSTANDING OF DISCHARGE INSTRUCTIONS AND NEW MEDICATIONS. GAVE PRESCRIPTIONS TO PT.
--- NOTE | 2021-01-22 15:05 | NUR ---
SW received call from pt requesting assistance with her FMLA/short term disability ppwk. Pt was discharged home yesterday, Friday, 01/22. LETICIA provided pt with contact info for the hospitalist office, as they will need to complete the ppwk and provide recommendation for time off work. Contact info for LETICIA also provided to pt if needed.
== END 2021-01-21 11:10 | disposition home health service (06) | DRG 871 ==
LOC: ER 11:10 → 3W 13:23 → EROBS 13:23 → 3W 01-10 15:12 → ICU 01-14 20:56 → 3W 01-16 15:14
PROVIDERS: Hospitalist; Internal Medicine Pulmonary Disease; Nurse Practitioner; Specialist; ADMIT Internal Medicine; ATTEND Internal Medicine
DX: A41.9 Sepsis, unspecified organism (principal); U07.1 COVID-19; J12.82 Pneumonia due to coronavirus disease 2019; J96.01 Acute respiratory failure with hypoxia; J96.02 Acute respiratory failure with hypercapnia; I26.99 Other pulmonary embolism without acute cor pulmonale; E44.0 Moderate protein-calorie malnutrition; S37.011A Minor contusion of right kidney, initial encounter; G93.40 Encephalopathy, unspecified; R65.20 Severe sepsis without septic shock; I25.10 Atherosclerotic heart disease of native coronary artery without angina pectoris; E78.5 Hyperlipidemia, unspecified; I10 Essential (primary) hypertension; F41.9 Anxiety disorder, unspecified; E87.6 Hypokalemia; E83.42 Hypomagnesemia; E83.51 Hypocalcemia; D69.6 Thrombocytopenia, unspecified; I49.5 Sick sinus syndrome; E66.01 Morbid (severe) obesity due to excess calories; X58.XXXA Exposure to other specified factors, initial encounter; Z95.1 Presence of aortocoronary bypass graft; Z95.0 Presence of cardiac pacemaker; Z85.3 Personal history of malignant neoplasm of breast; Z68.38 Body mass index [BMI] 38.0-38.9, adult; Z92.3 Personal history of irradiation; Y93.89 Activity, other specified; Y92.89 Other specified places as the place of occurrence of the external cause; Y99.8 Other external cause status
CPT/HCPCS: 10078; 10879; 27000; 50455